=== PATIENT | female | born 1960 | race Hispanic/Latino ===

== ENCOUNTER 2022-10-13 09:58 | Emergency (ER) | payer SELFPAY ==
--- OUTSIDE RECORDS SUMMARY | 2022-10-13 10:04 | XMS REPORT | Continuity of Care Document ---
:1960 Author Organization Formerly [facility] t Address [address] [facility] [address] [place] [address] Care Team Providers Name Role Phone Unavailable Unavailable Unavailable Problems This patient has no known problems. Allergies, Adverse Reactions, Alerts This patient has no known allergies or adverse reactions. Medications This patient has no known medications. Procedures This patient has no known procedures. Encounters Start End Encounter Admission Attending Care Care Encounter Source Date/Time Date/Time Type Type Clinicians Facility Department ID 2022-10-01 2022-10-01 Outpatient [facility] [id number] Vj 10:14:18 10:14:18 0823 F Gerardo Results Test Description Test Time Test Comments Results Result Comments Source AMYLASE 2022-10-02 05:27:40 Test Item Value Reference Range Interpretation Comme nts AMYLASE (test code = 2205) 47 U/L 28-100 [id number] 05:27:40 Test Item Value Reference Range Interpretation Comments LIPASE (test code = 2058) 27 U/L 13-60 HEMOGLOBIN [id number] 04:25:03 Test Item Value Reference Range Interpretation Comments HEMOGLOBIN A1c (test 5.9 % 4.2-5.6 H [employer]IC AN DIABETES code = 43760) ASSOCIATION IDELINES FOR HGB A1C: PREDIABETES/INC REASED RISK . . . . . . . 5.7 -6.4% DIAGNOSIS OF DI ABETES . . . . . . . . . >=6 .5% WITH CONFIRMATION OR APPROPRIATE SYMPTOMS NOTE: ASSAY MAY BE AFFECTED BY HEMOGLOBINOPATH IES (SICKLE CELL ANEMIA, S- C DISEASE, OTHERS) OR HALEY FICIALLY LOWERED BY DECR EASED RED CELL SURVIVAL ( HEMOLYTIC ANEMIAS, BLOOD LOSS, ETC.). CONSIDER ALTERN ATE TESTING OR LABORATORY C ONSULTATION. UNLESS OTHERWIS E INDICATED, ALL TESTING PER FORMED AT CLINICAL PATHOL [employer], [place] [address] [facility], [place] [address] LABORATORY DIRE CTOR: JOEL MERCHANT M.D. CLIA NUMBER [id number] [facility] ACCREDITATION N O. [id number] CBC W/AUTO DIFF WITH [id number] 03:55:56 Test Item Value Reference Range Interpretation Comments WBC (test code = 7.5 K/UL 3.5-11.0 1001) RBC (test code = 5.00 M/UL 3.80-5.40 1002) HEMOGLOBIN (test code 12.4 G/DL 11.5-15.5 = 1003) HEMATOCRIT (test code 40.7 % 34.0-45.0 = 1004) MCV (test code = 81.4 fL 80.0-99.0 1005) MCH (test code = 24.8 PG 25.0-33.0 L 1006) MCHC (test code = 30.5 G/DL 31.0-36.0 L 1007) RDW (test code = 15.5 % 11.5-15.0 H 1038) NEUTROPHILS (test 63.2 % code = 1008) LYMPHOCYTES (test 28.9 % code = 1010) MONOCYTES (test code 5.0 % = 1011) EOSINOPHILS (test 1.9 % code = 1012) BASOPHILS (test code 0.7 % = 1013) IMMATURE GRANULOCYTES 0.3 % (test code = 1036) NUCLEATED RBCS (test 0.0 /100 WBC'S See_Comment [Aut omated code = 1065) message] The sy stem which generated this result transmitted reference range : 0.0. The refere nce range was not u sed to interpret th is result as normal/abnormal . PLATELET COUNT (test 261 K/UL 130-400 code = 1015) ABSOLUTE NEUTROPHILS 4.72 K/UL 1.50-7.50 (test code = 1066) ABSOLUTE LYMPHOCYTES 2.15 K/UL 1.00-4.00 (test code = 1067) ABSOLUTE MONOCYTES 0.37 K/UL 0.20-1.00 (test code = 1068) ABSOLUTE EOSINOPHILS 0.14 K/UL 0.00-0.50 (test code = 1040) ABSOLUTE BASOPHILS 0.05 K/UL 0.00-0.20 (test code = 1069) ABS IMMATURE 0.02 K/UL 0.00-0.10 GRANULOCYTES (test code = 1020) ABS NUCLEATED RBCS 0.00 K/UL 0.00-0.11 (test code = 46094) COMPREHENSIVE METABOLIC [id number] 03:34:56 Test Item Value Reference Range Interpretation Comments GLUCOSE (test code = 88 MG/DL 70-99 2216) BUN (test code = 10 MG/DL 6-20 2207) CREATININE (test 0.57 MG/DL 0.60-1.30 L code = 221) eGFR (2020 CKD-EPI) 105 >60 (test code = ) ML/MIN/1.73 CALC BUN/CREAT (test 18 RATIO 6-28 code = 223) SODIUM (test code = 142 MEQ/L 661-787 2898) POTASSIUM (test code 4.4 MEQ/L 3.5-5.4 = 2227) CHLORIDE (test code 104 MEQ/L 95-107 = 2214) CARBON DIOXIDE (test 27 MEQ/L 19-31 code = 2205) CALCIUM (test code = 9.7 MG/DL 8.5-10.5 2208) PROTEIN, TOTAL (test 7.6 G/DL 6.1-8.3 code = 2228) ALBUMIN (test code = 4.2 G/DL 3.5-5.2 2200) CALC GLOBULIN (test 3.4 G/DL 1.9-3.7 code = 224) CALC A/G RATIO (test 1.2 RATIO 1.0-2.6 code = 223) BILIRUBIN, TOTAL 0.3 MG/DL See_Comment [Automated message] (test code = 220) The syste m which generated this result transmit winter reference range : <=1.2. The refe rence range was not u sed to interpret th is result as normal/abnormal . ALKALINE PHOSPHATASE 107 U/L 40-136 (test code = 220) AST (test code = 15 U/L 9-40 2217) ALT (test code = 13 U/L 5-40 2218) LIPID [id number] 03:34:56 Test Item Value Reference Range Interpretation Comments CHOLESTEROL (test 268 MG/DL <200 H code = 2210) TRIGLYCERIDES (test 235 MG/DL <150 H code = 2232) HDL CHOLESTEROL (test 49 MG/DL >39 code = 2220) CALC LDL CHOL (test 179 MG/DL <100 H NOTE: C ALCULATED LDL code = 2237) IS BASED ON FRANK-HERMAN METHOD WHICHINCLUDES ADJUSTABLE TRIGLYCERIDE:VL DL CHOLESTEROL RAT IO.THIS FACTOR VARIES B Y MEASURED TRIGLY CERIDE AND NON-HDLCHOL ESTEROL CONCENTRATIONS WITH INCREASED CALCU LATED LDL SEENIN HIGH ER TRIGLYCERIDE OR LOWER NON-HDL SPECIME NS. FOR MOREINFORMATION , SEE CLIENT ANNOUNCE MENT AT [email or web address] [email or web address] RATIO LDL/HDL 3.65 RATIO <3.22 H (test code = 2238)
[2022-10-13] MEDS ORDERED: NA CHLORIDE 0.9% 1,000 ML ONE (10:39)
[2022-10-13] MEDS ORDERED: MECLIZINE HCL 12.5 MG TAB ONE (10:39)
--- NOTE | 2022-10-13 10:45 | RAD REPORT ---
EXAM DESCRIPTION: Damon Single View10/13/2022 10:29 am CLINICAL HISTORY: Chest pain COMPARISON: none FINDINGS: The lungs appear clear of acute infiltrate. The heart is normal size IMPRESSION: No acute abnormalities displayed
[2022-10-13 10:50] LABS: Absolute Lymphocytes (CBC) 1.8 K/uL (0.7-4.9); Hematocrit 38.5 % (36.0-45.0); Lymphocytes % 24.4 % (15.3-44.8); MCV 80.1 fL (80-100); Platelets 308 thou/uL (152-406)
[2022-10-13 11:06] LABS: ALT/SGPT 21 U/L (13-56); AST/SGOT 10 U/L (15-37); Albumin 3.8 g/dL (3.4-5.0); Alkaline Phosphatase 99 U/L (45-117); BUN Blood Urea Nitrogen 9 mg/dL (7-18); Bicarbonate 26 mEq/L (21-32); Bilirubin Total 0.3 mg/dL (0.2-1.0); Glomerular Filtration Rate 107 ml/min (=/>90); Glucose Level 103 mg/dL (74-106); Magnesium 2.3 mg/dL (1.6-2.4); Potassium 3.7 mEq/L (3.5-5.1); Protein, Total 8.5 g/dL (6.4-8.2); Sodium Level 139 mEq/L (136-145)
[2022-10-13 11:09] LABS: Specific Gravity 1.007 (1.005-1.030); Urine Bacteria None Seen /HPF (<20); Urine Bilirubin NEGATIVE (Negative); Urine Blood 3+ (OVER) (Negative); Urine Clarity Turbid (Clear); Urine Color Colorless (Yellow); Urine Glucose NEGATIVE (Negative); Urine Protein NEGATIVE (Negative); Urine RBC 21-50 /HPF (None Seen); Urine Urobilinogen Normal (Normal); Urine pH 6.5 (5.0-7.0)
--- NOTE | 2022-10-13 11:09 | RAD REPORT ---
EXAM DESCRIPTION: CT - Head Brain Wo Cont - 10/13/2022 11:01 am CLINICAL HISTORY: Vertigo COMPARISON: none TECHNIQUE: Computed axial tomography of the head was obtained. IV contrast was not requested. All CT scans are performed using dose optimization technique as appropriate and may include automated exposure control or mA/KV adjustment according to patient size. FINDINGS: An intracranial bleed is not seen The ventricles are normal in caliber No significant hypodense areas within the brain visualized No extra-axial fluid collection is noted. Fluid within the sinuses/ mastoids is not seen IMPRESSION: No acute intracranial abnormality is seen If patient's symptoms persist MRI of the brain would be recommended
[2022-10-13 11:15] LABS: Bilirubin Direct < 0.1 mg/dL (0-0.2); Bilirubin Indirect, Calculated ND mg/dL (0.2-0.8)
[2022-10-13 11:18] LABS: Protime INR 1.24
--- NOTE | 2022-10-13 11:19 | RAD REPORT ---
EXAM DESCRIPTION: Nestor Angio10/13/2022 11:01 am CLINICAL HISTORY: Vertigo COMPARISON: None TECHNIQUE: 75 cc Isovue [address] angiogram of the neck was obtained. 3D MIPS reconstruction performed. All CT scans are performed using dose optimization technique as appropriate and may include automated exposure control or mA/KV adjustment according to patient size. FINDINGS: Mild plaque is present within common carotid, internal carotid and external carotid arteri es bilaterally Mild mild plaque is present within the vertebral arteries bilaterally No dissection is seen. No high-grade stenosis IMPRESSION: Mild plaque within the carotid and vertebral arteries [place] crieria Mild stenosis 0 to 49 % Moderate stenosis 50-69% Severe stenosis 70-99%
--- NOTE | 2022-10-13 11:19 | RAD REPORT ---
EXAM DESCRIPTION: CTHead angio10/13/2022 11:01 am CLINICAL HISTORY: Vertigo COMPARISON: None TECHNIQUE: Seventy-five cc Isovue [address] angiogram of the head was obtained. 3D MIPS reconstruction performed. All CT scans are performed using dose optimization technique as appropriate and may include automated exposure control or mA/KV adjustment according to patient size. FINDINGS: The basilar, anterior cerebral, middle cerebral and posterior cerebral arteries do not dem onstrate a significant abnormality Mild calcified plaque distal internal carotid arteries An aneurysm is not seen A significant stenosis is not noted. No large vessel occlusion IMPRESSION: No significant abnormality is displayed
--- NOTE | 2022-10-13 11:28 | RAD REPORT ---
EXAM DESCRIPTION: CT - Chest For Pe Angio - 10/13/2022 11:02 am CLINICAL HISTORY: Chest pain COMPARISON: None. TECHNIQUE: Dynamically enhanced axial 3 mm thick images of the chest were obtained during administra tion of 75 mL Isovue 370 IV contrast. This is in addition to the 75 mL Isovue [address] angiogram head and neck. Coronal and oblique reconstruction images were generated and reviewed. Exam utilizes a protocol for o ptimal evaluation of pulmonary arterial tree. Maximum intensity projections 3D imaging was utilized All CT scans are performed using dose optimization technique as appropriate and may include automated exposure control or mA/KV adjustment according to patient size. FINDINGS: Low-density is present within a few peripheral right pulmonary arteries. Otherwise no pulmonary embolus noted. A thoracic aortic aneurysm is not noted. A pleural effusion is not seen. A pericardial effusion is not seen. A lung consolidation is not present. IMPRESSION: Low density is present within a few peripheral right pulmonary arteries. This probably r epresents artifact. Pulmonary embolus is possible but considered less likely. If the patient's sympto ms persist then follow-up imaging on another day could be obtained
--- NOTE | 2022-10-13 13:12 | ER ---
Nurse's Notes [facility] Name: Kallie Durham Age: 61 yrs Sex: Female : 1960 Arrival Date: 10/13/2022 Time: 09:58 Bed 13 Private MD: Diagnosis: Dizziness and giddiness;Chest pain, unspecified Presentation: 10/13 10:15 Chief complaint: Patient states: Dizziness since last night, worse with movement, CP jl7 started this morning, clinic sent to ER for CP. Coronavirus screen: At this time, the client does not indicate any symptoms associated with coronavirus-19. Ebola Screen: No symptoms or risks identified at this time. Initial Sepsis Screen: Does the patient meet any 2 criteria? No. Patient's initial sepsis screen is negative. Does the patient have a suspected source of infection? No. Patient's initial sepsis screen is negative. Risk Assessment: Do you want to hurt yourself or someone else? Patient reports no desire to harm self or others. Onset of symptoms was October 12, 2022. 10:15 Method Of Arrival: Ambulatory jl7 10:15 Acuity: ZARA 2 jl7 Triage Assessment: 10:16 General: Appears in no apparent distress. uncomfortable, Behavior is calm, cooperative. jl7 Pain: Complains of pain in chest. Historical: - Allergies: 10:16 No Known Allergies; jl7 - Home Meds: 10:16 None [Active]; jl7 - PMHx: 10:16 None; jl7 - PSHx: 10:16 None; jl7 - Immunization history:: Adult Immunizations unknown. - Social history:: Smoking status: Patient denies any tobacco usage or history of. - Family history:: not pertinent. - Hospitalizations: : No recent hospitalization is reported. Screenin:30 [facility] ED Fall Risk Assessment (Adult) Score/Fall Risk Level 0 - 2 = Low Risk. Abuse eh3 screen: Denies threats or abuse. Denies injuries from another. Nutritional screening: No deficits noted. Tuberculosis screening: No symptoms or risk factors identified. Assessment: 10:30 General: Appears in no apparent distress. uncomfortable, Behavior is calm, cooperative, eh3 appropriate for age. Pain: Denies pain. Neuro: Level of Consciousness is awake, alert, obeys commands, Oriented to person, place, time, situation. Neuro: Reports dizziness. Cardiovascular: Capillary refill < 3 seconds Patient's skin is warm and dry. Respiratory: Airway is patent Respiratory effort is even, unlabored, Respiratory pattern is regular, symmetrical. GI: Abdomen is round non-distended. Derm: Skin is pink, warm \T\ dry. Musculoskeletal: Circulation, motion, and sensation intact. 11:30 Reassessment: Patient appears in no apparent distress at this time. Patient and/or 3 family updated on plan of care and expected duration. Pain level reassessed. Patient is alert, oriented x 3, equal unlabored respirations, skin warm/dry/pink. 12:30 Reassessment: Patient appears in no apparent distress at this time. Patient and/or 3 family updated on plan of care and expected duration. Pain level reassessed. Patient is alert, oriented x 3, equal unlabored respirations, skin warm/dry/pink. Vital Signs: 10:15 BP 165 / 93; Pulse 84; Resp 17; Temp 97.9; Pulse Ox 96% ; Weight 95 kg; jl7 10:45 BP 142 / 85; Pulse 75; Resp 16; Pulse Ox 97% on R/A; eh3 12:00 BP 129 / 83; Pulse 66; Resp 16; Pulse Ox 98% on R/A; eh3 12:30 BP 112 / 73; Pulse 60; Resp 16; Pulse Ox 97% on R/A; eh3 ED Course: 09:59 Patient arrived in ED. rg4 10:00 Wilder Feliciano MD is Attending Physician. rn 10:16 Triage completed. jl7 10:16 Arm band placed on right wrist. jl7 10:20 America Menchaca, RN is Primary Nurse. eh3 10:30 Patient has correct armband on for positive identification. Placed in gown. Bed in low eh3 position. Call light in reach. Side rails up X2. Adult w/ patient. Provided Education on: Use of call johnson. Client placed on continuous cardiac and pulse oximetry monitoring. NIBP monitoring applied. 10:31 Chest Single View XRAY In Process Unspecified. EDMS 10:42 Inserted saline lock: 20 gauge in right antecubital area, using aseptic technique. eh3 Blood collected. 11:03 CT Head Brain wo Cont In Process Unspecified. EDMS 11:[address] In Process Unspecified. EDMS 11:[address] In Process Unspecified. EDMS 11:03 CT Chest For PE Angio In Process Unspecified. EDMS 13:23 No provider procedures requiring assistance completed. IV discontinued, intact, eh3 bleeding controlled, No redness/swelling at site. Pressure dressing applied. Administered Medications: 10:42 Drug: NS 0.9% IV 1000 ml Route: IV; Rate: 1000 ml; Site: right antecubital; eh3 13:00 Follow up: IV Status: Completed infusion; IV Intake: 1000ml eh3 10:42 Drug: Meclizine PO 50 mg Route: PO; eh3 11:30 Follow up: Response: No adverse reaction eh3 Medication: 13:22 VIS not applicable for this client. eh3 Intake: 13:00 IV: 1000ml; Total: 1000ml. eh3 Outcome: 13:11 Discharge ordered by . rn 13:23 Discharged to home ambulatory. eh3 13:23 Condition: stable 13:23 Discharge instructions given to patient, Instructed on discharge instructions, follow up and referral plans. medication usage, Demonstrated understanding of instructions, follow-up care, medications, Prescriptions given X 1. 13:23 Patient left the ED. eh3 Signatures: Dispatcher [employer] EDMS Wilder Feliciano MD MD rn Garcia, Rubi rg4 Jose Rafael Naqvi RN RN jl7 America Menchaca RN RN eh3 Corrections: (The following items were deleted from the chart) 13:12 12:30 BP 112 / 73; Pulse 30bpm; Resp 16bpm; Pulse Ox 97% RA; eh3 eh3
--- NOTE | 2022-10-13 13:12 | EDPHYS ---
Physician Documentation [facility] Name: Kallie Durham Age: 61 yrs Sex: Female : 1960 Arrival Date: 10/13/2022 Time: 09:58 Bed 13 Private MD: ED Physician Wilder Feliciano HPI: 10/13 10:23 This 61 yrs old Female presents to ER via Ambulatory with complaints of rn Dizziness, chest pain. 10:23 The patient presents with dizziness, lightheadedness, feeling off balance. Onset: The rn symptoms/episode began/occurred last night. Modifying factors: The symptoms are alleviated by holding head still, lying down, the symptoms are aggravated by movement of head, standing up, changing position. Associated signs and symptoms: Pertinent positives: chest pain, Pertinent negatives: abdominal pain, confusion, seizure, syncope. Severity of symptoms: At their worst the symptoms were moderate in the emergency department the symptoms are unchanged. The patient has not experienced similar symptoms in the past. Patient reports started having intermittent dizzy episodes last night, feels off balance and is going to fall when walking. Better when not moving head or changing positions. This morning started to have episodes of chest pressure as well. Went to clinic and told to come here for further evaluation. Denies taking any medication. No head injury. No syncope or seizure. Reports nausea but no vomiting. No current or recent illness. Reports blood on toilet paper when wiping. Denies any blood in the urine.. Historical: - Allergies: 10:16 No Known Allergies; jl7 - Home Meds: 10:16 None [Active]; jl7 - PMHx: 10:16 None; jl7 - PSHx: 10:16 None; jl7 - Immunization history:: Adult Immunizations unknown. - Social history:: Smoking status: Patient denies any tobacco usage or history of. - Family history:: not pertinent. - Hospitalizations: : No recent hospitalization is reported. ROS: 10:23 Constitutional: Negative for fever, chills, and weight loss, Eyes: Negative for injury, rn pain, redness, and discharge, Neck: Negative for injury, pain, and swelling, Cardiovascular: Negative for palpitations, and edema, Respiratory: Negative for shortness of breath, cough, wheezing, and pleuritic chest pain, Abdomen/GI: Negative for abdominal pain, vomiting, diarrhea, and constipation, Back: Negative for injury and pain, MS/Extremity: Negative for injury and deformity, Skin: Negative for injury, rash, and discoloration, Neuro: Negative for weakness, numbness, tingling, and seizure. Exam: 10:23 Constitutional: This is a well developed, well nourished patient who is awake, alert, rn and in no acute distress. Ambulatory to room without distress or requiring assistance Head/Face: Normocephalic, atraumatic. Eyes: Pupils equal round and reactive to light, extra-ocular motions intact. Neck: Trachea midline, no masses palpated, and no cervical lymphadenopathy. Supple, full range of motion without nuchal rigidity, or vertebral point tenderness. No Meningismus. Cardiovascular: Regular rate and rhythm. No pulse deficits. Respiratory: No increased work of breathing, no retractions or nasal flaring. Abdomen/GI: Soft, non-tender Skin: Warm, dry with normal turgor. Normal color with no rashes, no lesions, and no evidence of cellulitis. MS/ Extremity: Pulses equal, no cyanosis. Neurovascular intact. Full, normal range of motion. Equal circumference. Neuro: Awake and alert, GCS 15, oriented to person, place, time, and situation. Cranial nerves II-XII grossly intact. Motor strength 5/5 in all extremities. Sensory grossly intact. Cerebellar exam normal. Normal gait. 12:05 ECG was reviewed by the Attending Physician. rn Vital Signs: 10:15 BP 165 / 93; Pulse 84; Resp 17; Temp 97.9; Pulse Ox 96% ; Weight 95 kg; jl7 10:45 BP 142 / 85; Pulse 75; Resp 16; Pulse Ox 97% on R/A; eh3 12:00 BP 129 / 83; Pulse 66; Resp 16; Pulse Ox 98% on R/A; eh3 12:30 BP 112 / 73; Pulse 60; Resp 16; Pulse Ox 97% on R/A; eh3 MDM: 10:00 Patient medically screened. rn 12:05 ED course: Spoke with patient and family regarding possible admission given no rn definitive source of chest pain and dizziness. CT PE negative for PE but not an ideal study per Dr. Burnett, but thinks PE is less likely source. CT head and head and neck angio without evidence of dissection or large vessel occlusion. Troponin negative. Normal ECG. Family and patient request to not be admitted, understands the risks and benefits of admission versus discharge. I convinced him to at least stay for repeat troponin and further observation In the ER. 13:10 Differential diagnosis: cardiac arrhythmia, generalized weakness, hyperventilation, rn hypovolemia, idiopathic dizziness, TIA, vertigo. Data reviewed: vital signs, nurses notes, lab test result(s), EKG, radiologic studies, CT scan, plain films, and as a result, I will admit patient. Consideration of Admission/Observation Escalation of care including admission/observation considered. Counseling: I had a detailed discussion with the patient and/or guardian regarding the historical points, exam findings, and any diagnostic results supporting the discharge/admit diagnosis, lab results. ED course: Repeat troponin negative, actually decreased. Patient and family still want to go home. Will DC home with return precautions. As mentioned before CT PE unclear by radiology favors artifact instead of real PE. No oxygen requirement.. 10/13 10:18 Order name: Basic Metabolic Panel; Complete Time: rn 10/13 10:18 Order name: CBC with Diff; Complete Time: rn 10/13 10:18 Order name: Hepatic Function; Complete Time: rn 10/13 10:18 Order name: Magnesium; Complete Time: rn 10/13 10:18 Order name: Protime (+inr); Complete Time: rn 10/13 10:18 Order name: Ptt, Activated; Complete Time: rn 10/13 10:18 Order name: Troponin High Sensitivity; Complete Time: rn 10/13 10:18 Order name: Urinalysis w/ reflexes; Complete Time: rn 10/13 11:17 Order name: CREATININE WHOLE BLOOD; Complete Time: 11: EDMS 10/13 12:05 Order name: Troponin High Sensitivity; Complete Time: 13: rn 10/13 10:18 Order name: CT Head Brain wo Cont; Complete Time: rn 10/13 10:18 Order name: Chest Single View XRAY; Complete Time: 11: rn 10/13 10:18 Order name: Head Angio CT; Complete Time: rn 10/13 10:18 Order name: Neck Angio CT; Complete Time: rn 10/13 10:21 Order name: CT Chest For PE Angio; Complete Time: 11:28 rn 10/13 10:18 Order name: EKG; Complete Time: 10:19 rn 10/13 10:18 Order name: Cardiac monitoring; Complete Time: 10:20 rn 10/13 10:18 Order name: EKG - Nurse/Tech; Complete Time: 11:39 rn 10/13 10:18 Order name: IV Saline Lock; Complete Time: 10:42 rn 10/13 10:18 Order name: Labs collected and sent; Complete Time: 10:42 rn 10/13 10:18 Order name: NPO; Complete Time: 10:20 rn 10/13 10:18 Order name: O2 Per Protocol; Complete Time: 10:20 rn 10/13 10:18 Order name: O2 Sat Monitoring; Complete Time: 10:20 rn EC:05 Rate is 67 beats/min. Rhythm is regular. QRS [place] is Normal. [place] interval is normal. QRS rn interval is normal. QT interval is normal. No Q waves. T waves are Normal. No ST changes noted. Clinical impression: Normal ECG. Interpreted by me. Reviewed by me. Administered Medications: 10:42 Drug: NS 0.9% IV 1000 ml Route: IV; Rate: 1000 ml; Site: right antecubital; 3 13:00 Follow up: IV Status: Completed infusion; IV Intake: 1000ml [facility] 10:42 Drug: Meclizine PO 50 mg Route: PO; 3 11:30 Follow up: Response: No adverse reaction [facility] Disposition Summary: 10/13/22 13:11 Discharge Ordered Location: Home rn Problem: new rn Symptoms: have improved rn Condition: Stable rn Diagnosis - Dizziness and giddiness rn - Chest pain, unspecified rn Followup: rn - With: Private Physician - When: As needed - Reason: Recheck today's complaints, Re-evaluation by your physician Discharge Instructions: - Discharge Summary Sheet rn - Nonspecific Chest Pain, Adult rn - Dizziness rn Forms: - Medication Reconciliation Form rn - Thank You Letter rn - Antibiotic furnace tapper - Prescription Opioid Use rn - Patient Portal Instructions rn - Leadership Thank You Letter rn Prescriptions: - Meclizine 25 mg Oral Tablet - take 1 tablet by ORAL route every 8 hours As needed; 30 tablet; Refills: 0, rn Product Selection Permitted Signatures: Dispatcher [employer] EDMS Wilder Feliciano MD MD rn Leal, Jahala, RN RN jl7 America Menchaca, RN RN eh3 Corrections: (The following items were deleted from the chart) 11:57 10:23 Patient reports started having intermittent dizzy episodes last night, feels off rn balance and is going to fall when walking. Better when not moving head or changing positions. This morning started to have episodes of chest pressure as well. Went to clinic and told to come here for further evaluation. Denies taking any medication. No head injury. No syncope or seizure. Reports nausea but no vomiting. No current or recent illness.. rn 13:11 13:10 ED course: Repeat troponin negative, actually decreased. Patient and family still rn want to go home. Will DC home with return precautions.. rn
[2022-10-13 13:30] VITALS: TEMP 97.9
[2022-10-13 13:35] VITALS: BP 112/73; O2SAT 97
--- NOTE | 2022-10-14 16:47 | EKG ---
Test Date: 2022-10-13 Test Time: 11:34:45 Dynamo Repairer: PERCY MEASUREMENT RESULTS: Intervals: Rate: 67 IL: 156 QRSD: 70 QT: 414 QTc: 437 [place]: P: 56 IL: 156 QRS: 26 T: 43 INTERPRETIVE STATEMENTS: Normal sinus rhythm Normal ECG Compared to ECG 07/26/2012 01:21:14 No significant changes Electronically Signed On 10-14-22 16:43:40 CDT by Phi Richards
== END 2022-10-13 13:23 | disposition home or self-care (01) ==
LOC: ER 09:58
DX: R42 Dizziness and giddiness (principal); R07.89 Other chest pain
CPT/HCPCS: 36415; 70450; 70496; 70498; 71045; 71275; 80048; 80076; 81001; 82565; 83735; 84484; 85025; 85610; 85730; 93005; 96360; 96361; 99284; J7030; J8597; Q9967

== ENCOUNTER → 2023-04-02 | Emergency (ER) | payer SELFPAY ==
[~2023-04-02] MED LIST: LORazepam 2 MG/ML VIAL ONE; MECLIZINE HCL 12.5 MG TAB ONE
--- OUTSIDE RECORDS SUMMARY | 2023-04-02 10:53 | XMS REPORT | Continuity of Care Document ---
Author Name Unknown Address [address] [facility]. [address] [place] [address] [facility] thconnect Address [address] [facility] [address] [place] [address] Care Team Providers Care Cloth Printer Helper Name Role Phone Unavailable Unavailable Unavailable Encounters Start Date/Time End Date/Time Encounter Type Admission Type Attending Clinicians Care Facility Care Department Encounter ID Source 2022-10-01 10:14:18 2022-10-01 10:14:18 Outpatient [facility] [id number] Vj Carrillo Results Test Description Test Time Test Comments Results Result Co mments Source [id number] 05:27:40* Test Item Value Reference Range Interpretation Comme [facility] LIPASE (test code = 2058) 27 U/L 13-60 HEMOGLOBIN [id number] 04:25:03* Test Item Value Reference Range Interpretation Comme [facility] HEMOGLOBIN A1c (test code = 38502) 5.9 % 4.2-5.6 H [employer] GUIDELINES FOR HGB A1C: PREDIABETES/INCREASED RISK . . . . . . . 5.7-6.4% DIAGNOSIS OF DIABETES . . . . . . . . . >=6.5% WITH CONFIRMATION OR APPROPRIATE SYMPTOMS NOTE: ASSAY MAY BE AFFECTED BY HEMOGLOBINOPATHIES (SICKLE CELL ANEMIA, S-C DISEASE, OTHERS) OR ARTIFICIALLY LOWERED BY DECREASED RED CELL SURVIVAL (HEMOLYTIC ANEMIAS, BLOOD LOSS, ETC.). CONSIDER ALTERNATE TESTING OR LABORATORY CONSULTATION. UNLESS OTHERWISE INDICATED, ALL TESTING PERFORMED AT [facility] [address] [place] [id number] PREVENTATIVE MAINTENANCE TECHNICIAN: JOEL MELVIN M.D. CLIA NUMBER [id number] [place]. [id number] CBC W/AUTO DIFF WITH [id number] 03:55:56* Test Item Value Reference Range Interpretation Comme nts WBC (test code = 1001) 7.5 K/UL 3.5-11.0 RBC (test code = 1002) 5.00 M/UL 3.80-5.40 HEMOGLOBIN (test code = 1003) 12.4 G/DL 11.5-15.5 HEMATOCRIT (test code = 1004) 40.7 % 34.0-45.0 MCV (test code = 1005) 81.4 fL 80.0-99.0 MCH (test code = 1006) 24.8 PG 25.0-33.0 L MCHC (test code = 1007) 30.5 G/DL 31.0-36.0 L RDW (test code = 1038) 15.5 % 11.5-15.0 H NEUTROPHILS (test code = 1008) 63.2 % LYMPHOCYTES (test code = 1010) 28.9 % MONOCYTES (test code = 1011) 5.0 % EOSINOPHILS (test code = 1012) 1.9 % BASOPHILS (test code = 1013) 0.7 % IMMATURE GRANULOCYTES (test code = 1036) 0.3 % NUCLEATED RBCS (test code = 1065) 0.0 /100 WBC'S See_Comment [Automated messa ge] The system which generated this result transmitted reference range: 0.0. The reference range was not used to interpret this result as normal/abnormal. PLATELET COUNT (test code = 1015) 261 K/UL 130-400 ABSOLUTE NEUTROPHILS (test code = 1066) 4.72 K/UL 1.50-7.50 ABSOLUTE LYMPHOCYTES (test code = 1067) 2.15 K/UL 1.00-4.00 ABSOLUTE MONOCYTES (test code = 1068) 0.37 K/UL 0.20-1.00 ABSOLUTE EOSINOPHILS (test code = 1040) 0.14 K/UL 0.00-0.50 ABSOLUTE BASOPHILS (test code = 1069) 0.05 K/UL 0.00-0.20 ABS IMMATURE GRANULOCYTES (test code = 1020) 0.02 K/UL 0.00-0.10 ABS NUCLEATED RBCS (test code = 07568) 0.00 K/UL 0.00-0.11 COMPREHENSIVE METABOLIC [id number] 03:34:56* Test Item Value Reference Range Interpretation Comme nts GLUCOSE (test code = 2217) 88 MG/DL 70-99 BUN (test code = 2207) 10 MG/DL 6-20 CREATININE (test code = 2213) 0.57 MG/DL 0.60-1.30 L eGFR (2020 CKD-EPI) (test code = ) 105 ML/MIN/1.73 >60 CALC BUN/CREAT (test code = 2234) 18 RATIO 6-28 SODIUM (test code = 2230) 142 MEQ/L 133-146 POTASSIUM (test code = 2227) 4.4 MEQ/L 3.5-5.4 CHLORIDE (test code = 2214) 104 MEQ/L 95-107 CARBON DIOXIDE (test code = 2205) 27 MEQ/L 19-31 CALCIUM (test code = 2208) 9.7 MG/DL 8.5-10.5 PROTEIN, TOTAL (test code = 2228) 7.6 G/DL 6.1-8.3 ALBUMIN (test code = 2200) 4.2 G/DL 3.5-5.2 CALC GLOBULIN (test code = 2239) 3.4 G/DL 1.9-3.7 CALC A/G RATIO (test code = 2233) 1.2 RATIO 1.0-2.6 BILIRUBIN, TOTAL (test code = 2206) 0.3 MG/DL See_Comment [Automated me ssage] The system which generated this result transmitted reference range: <=1.2. The reference range was not used to interpret this result as normal/abnormal. ALKALINE PHOSPHATASE (test code = 2203) 107 U/L 40-136 AST (test code = 2217) 15 U/L 9-40 ALT (test code = 2218) 13 U/L 5-40 LIPID [id number] 03:34:56* Test Item Value Reference Range Interpretation Comme nts CHOLESTEROL (test code = 2209) 268 MG/DL <200 H TRIGLYCERIDES (test code = 2231) 235 MG/DL <150 H HDL CHOLESTEROL (test code = 2219) 49 MG/DL >39 CALC LDL CHOL (test code = 2236) 179 MG/DL <100 H NOTE: CALCULATED LDL IS BASED ON FRANK-HERMAN METHOD WHICHINCLUDES ADJUSTABLE TRIGLYCERIDE:VLDL CHOLESTEROL RATIO.THIS FACTOR VARIES BY MEASURED TRIGLYCERIDE AND NON-HDLCHOLESTEROL CONCENTRATIONS WITH INCREASED CALCULATED LDL SEENIN HIGHER TRIGLYCERIDE OR LOWER NON-HDL SPECIMENS. FOR MOREINFORMATION, SEE CLIENT ANNOUNCEMENT AT [email or web address] RATIO LDL/HDL (test code = 2238) 3.65 RATIO <3.22 H
--- NOTE | 2023-04-02 12:10 | RAD REPORT ---
EXAM DESCRIPTION: CT - Head Brain Wo Cont - 04/02/2023 12:02 pm CLINICAL HISTORY: DIZZINESS Headache, drowsiness, dizziness. COMPARISON: Thorax Wo Con dated 03/10/2023Head Brain Wo Cont dated 10/13/2022; Head angio dated 3 TECHNIQUE: All CT scans are performed using dose optimization technique as appropriate and may inclu de automated exposure control or mA/KV adjustment according to patient size. FINDINGS: No intracranial hemorrhage, hydrocephalus or extra-axial fluid collection.No areas of brai n edema or evidence of midline shift. Mild right maxillary sinus fluid. The calvarium is intact. IMPRESSION: No acute intracranial abnormality.
--- NOTE | 2023-04-02 12:13 | RAD REPORT ---
EXAM DESCRIPTION: CT - Head angio - 04/02/2023 12:02 pm CLINICAL HISTORY: DIZZINESS Headache, drowsiness, CVA symptomology COMPARISON: <Comparisons> TECHNIQUE: CT angiography of the head was performed with MIPs. All CT scans are performed using dose optimization technique as appropriate and may include automated exposure control or mA/KV adjustment according to patient size. FINDINGS: No evidence of large vessel occlusion. No evidence of aneurysm is detected. No flow-limiti ng stenosis or vascular malformation identified. Antegrade flow is seen in the vertebral arteries. The vertebral arteries are codominant. The visualized dural venous sinuses are patent. IMPRESSION: No significant flow abnormality is detected.
--- NOTE | 2023-04-02 12:15 | RAD REPORT ---
EXAM DESCRIPTION: CT - Neck Angio - 04/02/2023 12:02 pm CLINICAL HISTORY: dizziness Headache, drowsiness, CVA symptomology COMPARISON: <Comparisons> TECHNIQUE: CT angiography of the neck vessels was performed with MIPs. All CT scans are performed using dose optimization technique as appropriate and may include automated exposure control or mA/KV adjustment according to patient size. FINDINGS: A left aortic arch is identified with normal three vessel configuration of the great vesse ls. No significant flow abnormality is seen of the common carotid bilaterally. Mild hard plaque is seen in both carotid bulbs. No significant stenosis is identified involving the c ervical segments of both internal carotid arteries. Normal flow is seen within both vertebral arteries. IMPRESSION: No significant flow abnormality of the neck vessels is identified. Mild hard plaque is seen in both carotid bulbs. NASCET criteria used. Mild 0-49% stenosis Moderate 50-69% stenosis Severe 70-99% stenosis
[2023-04-02 12:18] LABS: Absolute Lymphocytes (CBC) 1.9 K/uL (0.7-4.9); Hematocrit 43.2 % (36.0-45.0); Lymphocytes % 25.9 % (15.3-44.8); MCV 82.4 fL (80-100); MPV 8.3 fL (7.6-11.3); Platelets 299 thou/uL (152-406); RBC Red Blood Cell Count 5.24 M/uL (3.86-4.86)
--- NOTE | 2023-04-02 12:29 | RAD REPORT ---
EXAM DESCRIPTION: RAD - Chest Single View - 04/02/2023 12:19 pm CLINICAL HISTORY: COUGH Chest pain. COMPARISON: Chest Single View dated 10/13/2022 FINDINGS: Portable technique limits examination quality. The lungs are grossly clear. The heart is normal in size. No displaced fractures. IMPRESSION: No acute intrathoracic process suspected.
[2023-04-02 12:35] LABS: BUN Blood Urea Nitrogen 9 mg/dL (7-18); Bicarbonate 27 mEq/L (21-32); Glomerular Filtration Rate 109 ml/min (=/>90); Glucose Level 100 mg/dL (74-106); Potassium 3.6 mEq/L (3.5-5.1); Sodium Level 141 mEq/L (136-145)
[2023-04-02 12:36] LABS: Troponin High Sensitivity < 3.0 pg/mL (<58.9)
[2023-04-02 13:50] LABS: Urine Bacteria None Seen /HPF (<20); Urine Bilirubin NEGATIVE (Negative); Urine Blood Negative (Negative); Urine Clarity Clear (Clear); Urine Color Colorless (Yellow); Urine Glucose NEGATIVE (Negative); Urine Mucus Slight /HPF (None Seen); Urine Protein NEGATIVE (Negative); Urine RBC <5 /HPF (None Seen); Urine Urobilinogen Normal (Normal); Urine pH 6.5 (5.0-7.0)
[2023-04-02 13:56] LABS: Specific Gravity > 1.030 (1.005-1.030)
--- NOTE | 2023-04-02 15:22 | RAD REPORT ---
EXAM DESCRIPTION: MRI - Brain Wo Cont - 04/02/2023 2:28 pm CLINICAL HISTORY: dizziness, L arm dysmetria COMPARISON: Head CT 03/24/2022 at 9:12 a.m.. TECHNIQUE: Multiplanar multisequence MRI of the brain performed without IV contrast. FINDINGS: Motion artifact somewhat limits evaluation, despite attempts at repeat imaging. No evidence of acute infarct or other diffusion signal abnormality. No evidence of acute intracranial hemorrhage or abnormal extra-axial fluid collections. Ventricular caliber within normal for age. Midline structures are unremarkable. Subtle subcortical and deep white matter T2/FLAIR hyperintensities, nonspecific, but suggestive of mi ld chronic small vessel ischemic changes. No mass effect or midline shift. Major vascular flow voids are preserved. Mastoid air cells are partially opacified on the left. Right maxillary sinus air-fluid level. IMPRESSION: No acute intracranial process. No evidence of ventriculomegaly or mass effect.
--- NOTE | 2023-04-02 16:03 | EDPHYS ---
Physician Documentation [facility] Name: Kallie Durham Age: 62 yrs Sex: Female : 1960 Arrival Date: 04/02/2023 Time: 10:50 Bed 30 Private MD: ED Physician Casey Lomas HPI: 04/02 11:27 This 62 yrs old Female presents to ER via Ambulatory with complaints of ec2 Weakness, Dizziness. 11:27 Patient arrives today for evaluation of dizziness. Patient has been experiencing ec2 dizziness for the past 4 days. Patient states that she feels dizzy as she is unstable on her feet, states that she has issues with ambulation. Patient reports no falls or injuries. No history of medical problems. Denies any chest pain or difficulty breathing, denies abdominal pain, denies recent illnesses.. Historical: - Allergies: 11:24 No Known Allergies; iw - Home Meds: 11:25 None [Active]; iw - PMHx: 11:25 None; iw - Immunization history:: Adult Immunizations not up to date. - Social history:: Smoking status: Patient denies any tobacco usage or history of. ROS: 11:28 Constitutional: as per hpi ec2 Exam: 11:28 Constitutional: GEN: NAD Head: atraumatic Eyes: EOMI Ears: External ears are ec2 normal. CV: regular rate LUNGS: no respiratory distress ABD: non-distended SKIN: no evidence of rashes MSK: no evidence of trauma NEURO: moves all extremities equally, cranial nerves II through XII intact, strength intact all 4 extremities, no pronator drift, left-sided upper extremity dysmetria Vital Signs: 11:24 BP 108 / 69; Pulse 83; Resp 16; Temp 98.4; Pulse Ox 96% on R/A; Weight 90.72 kg; iw 16:10 BP 132 / 88; Pulse 89; Resp 18 S; Pulse Ox 99% on R/A; as6 MDM: 11:24 Patient medically screened. ec2 11:28 Data reviewed: vital signs. ED course: Patient arrives today for evaluation of ec2 dizziness. Examination remarkable for neuro findings as noted above. Will obtain lab work, CT imaging and further assess. Currently evaluating for possible occlusion, stroke, electrolyte disturbances, UTI.. 16:00 ED course: MRI shows no acute intracranial process. Will treat the patient for ec2 peripheral vertigo and have her follow-up with the primary care doctor. Return precautions given. 04/02 11:26 Order name: Basic Metabolic Panel; Complete Time: 12:43 ec2 04/02 11:26 Order name: CBC with Diff; Complete Time: 12:43 ec2 04/02 11:26 Order name: Troponin HS; Complete Time: 12:43 ec2 04/02 11:26 Order name: UAM; Complete Time: 14:25 ec2 04/02 12:48 Order name: CREATININE WHOLE BLOOD; Complete Time: 13:00 EDMS 04/02 11:26 Order name: XRAY Chest (1 view); Complete Time: 12:43 ec2 04/02 11:26 Order name: CT Head Angio; Complete Time: 12:43 ec2 04/02 11:26 Order name: CT Neck Angio; Complete Time: 12:43 ec2 04/02 11:26 Order name: CT Head Brain wo Cont; Complete Time: 12:43 ec2 04/02 12:48 Order name: MRI - Brain Wo Cont; Complete Time: 15:59 ec2 04/02 11:26 Order name: Cardiac monitoring; Complete Time: 15:13 ec2 04/02 11:26 Order name: IV Saline Lock; Complete Time: 13:44 ec2 04/02 11:26 Order name: Labs collected and sent; Complete Time: 13:44 ec2 04/02 11:26 Order name: O2 Per Protocol; Complete Time: 15:13 ec2 04/02 11:26 Order name: O2 Sat Monitoring; Complete Time: 15:12 ec2 Administered Medications: 12:52 Drug: Meclizine PO 50 mg PO once Route: PO; as6 16:12 Follow up: Response: No adverse reaction as6 14:00 Drug: Ativan IVP 2 mg IVP once Route: IVP; Site: right antecubital; as6 16:12 Follow up: Response: No adverse reaction as6 Disposition Summary: 04/02/23 16:03 Discharge Ordered Notes: Location: Home ec2 Condition: Stable ec2 Diagnosis - Other peripheral vertigo ec2 Followup: ec2 - With: Private Physician - When: - Reason: Re-evaluation by your physician Discharge Instructions: - Discharge Summary Sheet ec2 - Vertigo, Sdhe-[id number] ec2 Forms: - Medication Reconciliation Form ec2 - Thank You Letter ec2 - Antibiotic Education ec2 - Prescription Opioid Use ec2 - Patient Portal Instructions ec2 - Leadership Thank You Letter ec2 Prescriptions: - Meclizine 25 mg Oral Tablet - take 1 tablet ORAL route every 8 hours As needed; 30 tablet; Refills: 0, ec2 Product Selection Permitted Signatures: Dispatcher [employer] Sona Mayen RN RN iw Slawson, Ashby, RN RN as6 Casey Lomas MD MD ec2
--- NOTE | 2023-04-02 16:03 | ER ---
Nurse's Notes [facility] Name: Kallie Durham Age: 62 yrs Sex: Female : 1960 Arrival Date: 04/02/2023 Time: 10:50 Bed 30 Private MD: Diagnosis: Other peripheral vertigo Presentation: 04/02 11:21 Chief complaint: Patient states: dizziness and weakness since Thursday. Coronavirus iw screen: At this time, the client does not indicate any symptoms associated with coronavirus-19. Ebola Screen: Patient negative for fever greater than or equal to 101.5 degrees Fahrenheit, and additional compatible Ebola Virus Disease symptoms Patient denies exposure to infectious person. Patient denies travel to an Ebola-affected area in the 21 days before illness onset. No symptoms or risks identified at this time. Initial Sepsis Screen: Does the patient meet any 2 criteria? No. Patient's initial sepsis screen is negative. Does the patient have a suspected source of infection? No. Patient's initial sepsis screen is negative. Risk Assessment: Do you want to hurt yourself or someone else? Patient reports no desire to harm self or others. 11:21 Method Of Arrival: Ambulatory iw 11:21 Acuity: ZARA 3 iw 16:11 Onset of symptoms was March 30, 2023. as6 Historical: - Allergies: 11:24 No Known Allergies; iw - Home Meds: 11:25 None [Active]; iw - PMHx: 11:25 None; iw - Immunization history:: Adult Immunizations not up to date. - Social history:: Smoking status: Patient denies any tobacco usage or history of. Screenin:10 [facility] ED Fall Risk Assessment (Adult) Score/Fall Risk Level 0 - 2 = Low Risk. Abuse as6 screen: Denies threats or abuse. Denies injuries from another. Nutritional screening: No deficits noted. Tuberculosis screening: No symptoms or risk factors identified. Assessment: 13:00 General: Appears in no apparent distress. Behavior is calm, cooperative, Reports as6 fatigue for. Pain: Denies pain. Neuro: Reports weakness. 13:29 General: pt taken to MRI. as6 Vital Signs: 11:24 BP 108 / 69; Pulse 83; Resp 16; Temp 98.4; Pulse Ox 96% on R/A; Weight 90.72 kg; iw 16:10 BP 132 / 88; Pulse 89; Resp 18 S; Pulse Ox 99% on R/A; as6 ED Course: 10:52 Patient arrived in ED. mg5 10:55 Casey Lomas MD is Attending Physician. ec2 11:22 Triage completed. iw 12:03 CT Head Angio In Process Unspecified. EDMS 12:03 CT Neck Angio In Process Unspecified. EDMS 12:04 CT Head Brain wo Cont In Process Unspecified. EDMS 12:08 CT completed. Patient tolerated procedure well. Note: 20 g to rt ac by zahraa in ct, sj labs drawn and sent . Patient moved to radiology via wheelchair. 12:21 XRAY Chest (1 view) In Process Unspecified. EDMS 13:29 Arm band placed on. as6 14:20 MRI - Brain Wo Cont In Process Unspecified. EDMS 15:12 Elpidio Mazariegos, RN is Primary Nurse. bp 16:10 Bed in low position. Call light in reach. Provided Education on: follow up. as6 16:10 No provider procedures requiring assistance completed. IV discontinued, intact, as6 bleeding controlled, No redness/swelling at site. Pressure dressing applied. Administered Medications: 12:52 Drug: Meclizine PO 50 mg PO once Route: PO; as6 16:12 Follow up: Response: No adverse reaction as6 14:00 Drug: Ativan IVP 2 mg IVP once Route: IVP; Site: right antecubital; as6 16:12 Follow up: Response: No adverse reaction as6 Medication: 16:10 VIS not applicable for this client. as6 Outcome: 16:03 Discharge ordered by . ec2 16:11 Discharged to home ambulatory, with family, as6 16:11 Condition: stable 16:11 Discharge instructions given to patient, family, Instructed on discharge instructions, follow up and referral plans. medication usage, Demonstrated understanding of instructions, follow-up care, medications, Prescriptions given X 1, 16:12 Patient left the ED. as6 Signatures: Dispatcher [employer] Zahraa Haney Irene, RN RN iw Elpidio Mazariegos, Partha Godinez RN, RN RN as6 Darline Klein mg5 Casey Lomas MD MD ec2 Corrections: (The following items were deleted from the chart) 11:25 11:24 Pulse 83bpm; Resp 16bpm; Pulse Ox 96% RA; Temp 98.4F; 90.72 kg; iw iw
[2023-04-02 16:19] VITALS: BP 132/88; TEMP 98.4; O2SAT 99
== END ==
LOC: ER 10:50
DX: H81.399 Other peripheral vertigo, unspecified ear (principal)
CPT/HCPCS: 36415; 70450; 70496; 70498; 70551; 71045; 80048; 81001; 82565; 84484; 85025; J8597; Q9967

== ENCOUNTER 2024-01-18 10:46 | Emergency (ER) | payer SELFPAY ==
--- OUTSIDE RECORDS SUMMARY | 2024-01-18 10:50 | XMS REPORT | Continuity of Care Document ---
Author Name Unknown Address [address] [facility] [address] [place] [address] [facility] thconnect Address [address] [facility] 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 Ordering Clinician Indication Dosage Frequency Signature (SIG) Comments Components Source naproxen 500 mg tablet 06-03 00:00: 00 Yes 1mg Vj Carrillo cyclobenzap rine 10 mg tablet 06-03 00:00: 00 Yes 1mg Vj Carrillo ranitidine 150 mg tablet 04-14 00:00: 00 Yes 1mg Vj Carrillo Bactroban 2 % topical ointment 05-31 00:00: 00 Yes 1% Vj Carrillo triamcinolo ne acetonide 0.5 % topical cream 04-20 00:00: 00 Yes 1% Vj Carrillo hydralazine 25 mg tablet 04-20 00:00: 00 Yes 1mg Vj Carrillo Vital Signs Vital Name Observation Time Observation Value Comments S ource Respiratory Rate 2023-06-04 10:01:00 19.00 /min Vj Carrillo BP Systolic 2023-06-04 10:01:00 111 mm[Hg] Michael Carrillo BP Diastolic 2023-06-04 10:01:00 73 mm[Hg] Robin Carrillo Weight Measured 2023-06-04 10:01:00 210.00 pounds Vj Carrillo Height Measured 2023-06-04 10:01:00 60.75 inches Vj F Gerardo Body Temperature 2023-06-04 10:01:00 98.10 degrees Vj F Gerardo Heart Rate 2023-06-04 10:01:00 78.00 /min Lizzie en F Gerardo BP Systolic 2022-10-01 10:14:00 122 mm[Hg] Step hen F Gerardo BP Diastolic 2022-10-01 10:14:00 61 mm[Hg] Robin phen F Gerardo Weight Measured 2022-10-01 10:14:00 214.00 pounds Vj F Gerardo Height Measured 2022-10-01 10:14:00 60.75 inches Vj F Gerardo Body Temperature 2022-10-01 10:14:00 97.60 degrees Vj F Gerardo Heart Rate 2022-10-01 10:14:00 66.00 /min Lizzie en F Gerardo Respiratory Rate 2022-10-01 10:14:00 Vj F Gerardo BP Systolic 2017-07-08 11:32:00 127 mm[Hg] Step hen F Gerardo BP Diastolic 2017-07-08 11:32:00 83 mm[Hg] Robin phen F Gerardo Weight Measured 2017-07-08 11:32:00 203.00 pounds Vj F Gerardo Height Measured 2017-07-08 11:32:00 60.75 inches Vj F Gerardo Body Temperature 2017-07-08 11:32:00 98.40 degrees Vj F Gerardo Heart Rate 2017-07-08 11:32:00 69.00 /min Lizzie en F Gerardo Respiratory Rate 2017-07-08 11:32:00 18.00 /min Vj F Gerardo BP Systolic 2017-04-14 09:43:00 132 mm[Hg] Step hen F Gerardo BP Diastolic 2017-04-14 09:43:00 85 mm[Hg] Robin phen F Gerardo Weight Measured 2017-04-14 09:43:00 205.40 pounds Vj F Gerardo Height Measured 2017-04-14 09:43:00 60.75 inches Vj F Gerardo Body Temperature 2017-04-14 09:43:00 98.30 degrees Vj F Gerardo Heart Rate 2017-04-14 09:43:00 71.00 /min Lizzie en F Geradro Respiratory Rate 2017-04-14 09:43:00 14.00 /min Vj F Gerardo BP Systolic 2014-05-29 15:14:00 117 mm[Hg] Step hen F Gerardo BP Diastolic 2014-05-29 15:14:00 81 mm[Hg] Robin phen F Gerardo Weight Measured 2014-05-29 15:14:00 205.60 pounds Vj F Gerardo Height Measured 2014-05-29 15:14:00 60.75 inches Vj F Greardo Body Temperature 2014-05-29 15:14:00 97.90 degrees Vj F Gerardo Heart Rate 2014-05-29 15:14:00 78.00 /min Lizzie en F Gerardo Respiratory Rate 2014-05-29 15:14:00 Vj F Gerardo BP Systolic 2014-04-20 10:26:00 121 mm[Hg] Step hen F Gerardo BP Diastolic 2014-04-20 10:26:00 83 mm[Hg] Robin phen F Gerardo Weight Measured 2014-04-20 10:26:00 209.00 pounds Vj F Gerardo Height Measured 2014-04-20 10:26:00 60.75 inches Vj F Gerardo Body Temperature 2014-04-20 10:26:00 Vj F Gerardo Heart Rate 2014-04-20 10:26:00 79.00 /min Lizzie en F Gerardo Respiratory Rate 2014-04-20 10:26:00 Vj F Gerardo BP Systolic 2014-04-20 10:15:00 121 mm[Hg] Step hen F Gerardo BP Diastolic 2014-04-20 10:15:00 83 mm[Hg] Robin phen F Gerardo Weight Measured 2014-04-20 10:15:00 209.00 pounds Vj Carrillo Height Measured 2014-04-20 10:15:00 60.75 inches Vj Carrillo Body Temperature 2014-04-20 10:15:00 Vj F Gerardo Heart Rate 2014-04-20 10:15:00 79.00 /min Lizzie en F Gerardo Respiratory Rate 2014-04-20 10:15:00 Vj Carrillo Procedures Procedure Date / Time Performed Performing Clinicia n Source Ecg Routine Ecg W/least 12 Lds W/i r 2014-04-20 00:00:00 Vj Carrillo Encounters Start Date/Time End Date/Time Encounter Type Admission Type Attending [facility] Care Department Encounter ID Source 2023-06-04 09:57:50 2023-06-04 09:57:[address] [facility] [id number] Vj Carrillo 2023-06-04 00:00:00 2023-06-04 00:00:[address] [facility] [id number] Vj Carrillo 2022-10-01 10:14:18 2022-10-01 10:14:18 Outpatient [facility] [id number] Vj Carrillo Results Test Description Test Time Test Comments Results Result Co mments Source [id number] 05:27:40* Test Item Value Reference Range Interpretation Comme nts LIPASE (test code = 2058) 27 U/L 13-60 HEMOGLOBIN [id number] 04:25:03* Test Item Value Reference Range Interpretation Comme nts HEMOGLOBIN A1c (test code = 38068) 5.9 % 4.2-5.6 H [employer] GUIDELINES FOR HGB A1C: [...] TESTING PERFORMED AT [facility] [address] [place] [address] [employer] VICE PRESIDENT: JOEL MELVIN M.D. CLIA NUMBER [id number] [facility]. [id number] CBC W/AUTO DIFF WITH [id number] 03:55:56* Test Item Value Reference Range Interpretation [...] 0.00-0.10 ABS NUCLEATED RBCS (test code = 57995) 0.00 K/UL 0.00-0.11 COMPREHENSIVE METABOLIC [id number] 03:34:56* Test Item Value Reference Range Interpretation Comme nts GLUCOSE (test code = 2217) 88 MG/DL 70-99 BUN (test code = 2208) 10 MG/DL 6-20 CREATININE (test code = 2214) 0.57 MG/DL 0.60-1.30 L eGFR (2020 CKD-EPI) (test code = 64672) 105 ML/MIN/1.73 >60 CALC BUN/CREAT (test code = 2235) 18 RATIO 6-28 SODIUM (test code = 2231) 142 MEQ/L 133-146 POTASSIUM (test code = 2228) 4.4 MEQ/L 3.5-5.4 CHLORIDE (test code = 2215) 104 MEQ/L 95-107 CARBON DIOXIDE (test code = 6) 27 MEQ/L 19-31 CALCIUM (test code = 2208) 9.7 MG/DL 8.5-10.5 PROTEIN, TOTAL (test code = 2228) 7.6 G/DL 6.1-8.3 ALBUMIN (test code = 1) 4.2 G/DL 3.5-5.2 CALC GLOBULIN (test code = 0) 3.4 G/DL 1.9-3.7 CALC A/G RATIO (test [...] code = 2218) 13 U/L 5-40 LIPID [id number] 03:34:56* Test Item Value Reference Range Interpretation Comme nts CHOLESTEROL (test code = 0) 268 MG/DL <200 H TRIGLYCERIDES (test code = 2) 235 MG/DL <150 H HDL CHOLESTEROL (test code = 2219) 49 MG/DL >39 CALC LDL CHOL (test code = 2236) 179 MG/DL <100 H NOTE: CALCULATED LDL IS BASED ON FRANK-HERMAN METHOD WHICHINCLUDES ADJUSTABLE TRIGLYCERIDE:VLDL CHOLESTEROL RATIO.THIS FACTOR VARIES BY MEASURED TRIGLYCERIDE AND NON-HDLCHOLESTEROL CONCENTRATIONS WITH INCREASED CALCULATED LDL SEENIN HIGHER TRIGLYCERIDE OR LOWER NON-HDL SPECIMENS. FOR MOREINFORMATION, SEE CLIENT ANNOUNCEMENT AT [email or web address] RISK RATIO LDL/HDL (test code = 2237) 3.65 RATIO <3.22 H [id number] 00:00:00* Test Item Value Reference Range Interpretation Comme nts AMYLASE (test code = 2204) 47 U/L Vj Loera [id number] 00:00:00* Test Item Value Reference Range Interpretation Comme nts LIPASE (test code = 2057) 27 U/L Vj F AustinCOMPREHENSIVE METABOLIC [id number] 00:00:00* Test Item Value Reference Range Interpretation Comme nts GLUCOSE (test code = 2217) 88 MG/DL BUN (test code = 2208) 10 MG/DL CREATININE (test code = 2214) 0.57 MG/DL eGFR (2020 CKD-EPI) (test code = 75360) 105 ML/MIN/1.73 CALC BUN/CREAT (test code = 2235) 18 RATIO SODIUM (test code = 2231) 142 MEQ/L POTASSIUM (test code = 2228) 4.4 MEQ/L CHLORIDE (test code = 2215) 104 MEQ/L CARBON DIOXIDE (test code = 2206) 27 MEQ/L CALCIUM (test code = 2209) 9.7 MG/DL PROTEIN, TOTAL (test code = 2229) 7.6 G/DL ALBUMIN (test code = 2201) 4.2 G/DL CALC GLOBULIN (test code = 2240) 3.4 G/DL CALC A/G RATIO (test code = 2234) 1.2 RATIO BILIRUBIN, TOTAL (test code = 2207) 0.3 MG/DL ALKALINE PHOSPHATASE (test code = 2204) 107 U/L AST (test code = 2218) 15 U/L ALT (test code = 2219) 13 U/L Vj Loera GerardoLIPID [id number] 00:00:00* Test Item Value Reference Range Interpretation Comme nts CHOLESTEROL (test code = 2210) 268 MG/DL TRIGLYCERIDES (test code = 2232) 235 MG/DL HDL CHOLESTEROL (test code = 2220) 49 MG/DL CALC LDL CHOL (test code = 2237) 179 MG/DL RISK RATIO LDL/HDL (test cod e = 2238) 3.65 RATIO Vj Loera GerardoCBC W/AUTO [id number] 00:00:00* Test Item Value Reference Range Interpretation Comme nts WBC (test code = 1001) 7.5 K/UL RBC (test code = 1002) 5.00 M/UL HEMOGLOBIN (test code = 1003) 12.4 G/DL HEMATOCRIT (test code = 1004) 40.7 % MCV (test code = 1005) 81.4 fL MCH (test code = 1006) 24.8 PG MCHC (test code = 1007) 30.5 G/DL RDW (test code = 1038) 15.5 % NEUTROPHILS (test code = 1008) 63.2 % LYMPHOCYTES (test code = 1010) 28.9 % MONOCYTES (test code = 1011) 5.0 % EOSINOPHILS (test code = 1012) 1.9 % BASOPHILS (test code = 1013) 0.7 % IMMATURE GRANULOCYTES (test code = 1036) 0.3 % NUCLEATED RBCS (test code = 1065) 0.0 /100WBC'S PLATELET COUNT (test code = 1015) 261 K/UL ABSOLUTE NEUTROPHILS (test c ode = 1066) 4.72 K/UL ABSOLUTE LYMPHOCYTES (test c ode = 1067) 2.15 K/UL ABSOLUTE MONOCYTES (test cod e = 1068) 0.37 K/UL ABSOLUTE EOSINOPHILS (test c ode = 1040) 0.14 K/UL ABSOLUTE BASOPHILS (test cod e = 1069) 0.05 K/UL ABS IMMATURE GRANULOCYTES (t est code = 1020) 0.02 K/UL ABS NUCLEATED RBCS (test cod e = 80749) 0.00 K/UL Vj CarrilloHEMOGLOBIN [id number] 00:00:00* Test Item Value Reference Range Interpretation Comme nts HEMOGLOBIN A1c (test code = 84870) 5.9 % Vj CarrilloHEMOGLOBIN [id number] 00:00:00* Test Item Value Reference Range Interpretation Comme nts HEMOGLOBIN A1c (test code = 04057) 5.8 % Vj Loera [id number] 00:00:00* Test Item Value Reference Range Interpretation Comme nts TSH, THIRD GENERATION (test code = 2821) 2.180 UIU/ML Vj CarrilloLIPID [id number] 00:00:00* Test Item Value Reference Range Interpretation Comme nts CHOLESTEROL (test code = 2210) 286 MG/DL TRIGLYCERIDES (test code = 2232) 192 MG/DL HDL CHOLESTEROL (test code = 2220) 61 MG/DL CALC LDL CHOL (test code = 2237) 187 MG/DL RISK RATIO LDL/HDL (test cod e = 2238) 3.06 RATIO Vj CarrilloCBC W/AUTO [id number] 00:00:00* Test Item Value Reference Range Interpretation Comme nts WBC (test code = 1001) 9.5 K/UL RBC (test code = 1002) 4.90 M/UL HEMOGLOBIN (test code = 1003) 13.4 G/DL HEMATOCRIT (test code = 1004) 39.5 % MCV (test code = 1005) 80.6 fL MCH (test code = 1006) 27.3 PG MCHC (test code = 1007) 33.9 G/DL RDW (test code = 1038) 14.4 % NEUTROPHILS (test code = 1008) 68.5 % LYMPHOCYTES (test code = 1010) 23.6 % MONOCYTES (test code = 1011) 4.9 % EOSINOPHILS (test code = 1012) 2.4 % BASOPHILS (test code = 1013) 0.6 % PLATELET COUNT (test code = 1015) 329 K/UL Vj CarrilloCOMPREHENSIVE METABOLIC [id number] 00:00:00* Test Item Value Reference Range Interpretation Comme nts GLUCOSE (test code = 2217) 97 MG/DL BUN (test code = 2208) 11 MG/DL CREATININE (test code = 2214) 0.46 MG/DL eGFR AMER. (test cod e = 00884) 131 ML/MIN/1.73 eGFR NON- AMER. (test code = 71818) 113 ML/MIN/1.73 CALC BUN/CREAT (test code = 2235) 24 RATIO SODIUM (test code = 2231) 139 MEQ/L POTASSIUM (test code = 2228) 4.7 MEQ/L CHLORIDE (test code = 2215) 99 MEQ/L CARBON DIOXIDE (test code = 2206) 26 MEQ/L CALCIUM (test code = 2209) 9.6 MG/DL PROTEIN, TOTAL (test code = 2229) 8.1 G/DL ALBUMIN (test code = 2201) 4.3 G/DL CALC GLOBULIN (test code = 2240) 3.8 G/DL CALC A/G RATIO (test code = 2234) 1.1 RATIO BILIRUBIN, TOTAL (test code = 2207) 0.2 MG/DL ALKALINE PHOSPHATASE (test code = 2204) 113 U/L AST (test code = 2218) 17 U/L ALT (test code = 2219) 18 U/L Vj Carrillo
[2024-01-18] MEDS ORDERED: HYDROCODONE/APAP 10/325 TAB ONE (11:09)
--- NOTE | 2024-01-18 12:10 | RAD REPORT ---
EXAMINATION: XR Foot Right 2 View CLINICAL INDICATION: Female, 63 years old. [facility] MAIN PAIN Bed Name: 12 TECHNIQUE: 2 view radiographs of the right foot were obtained. COMPARISON: No prior exam. FINDINGS: No evidence of fracture or dislocation. Normal alignment although somewhat rotated lateral projection positioning and superimposition of extracorporeal tissues along the left heel limits evaluation. No evidence of arthropathy or other focal bone lesion. Soft tissues are unremarkable. No soft tissue swelling. Mild degenerative changes of the midfoot. IMPRESSION: No acute or significant abnormalities. Findings as above.
--- NOTE | 2024-01-18 12:12 | RAD REPORT ---
EXAM: XR Knee Right 3 View HISTORY: HS MAIN fall;Pain Bed Name: 12 COMPARISON: None TECHNIQUE: 3 views of the left knee were obtained. FINDINGS: No knee effusion is seen. Mildly displaced and comminuted fracture of the patella, some of its components appear corticated, may indicate acute on top of chronic fractures. Deformity of the distal femoral metaphysis compatible with prior fracture healing. At least moderate tricompartmental osteoarthritic changes with narrowing of the weightbearing compartments No soft tissue swelling or other soft tissue abnormality is present. IMPRESSION: Probable acute on top of chronic fractures of the patella. Please correlate with physical exam findin gs. Deformity of the distal femur suggesting a healed remote fracture. Please moderate tricompartmental o steoarthritic knee joint changes.
--- NOTE | 2024-01-18 13:53 | RAD REPORT ---
EXAM: CT Knee Right Wo Cont HISTORY: fall COMPARISON: None TECHNIQUE: Multiple contiguous axial images were obtained for a CT of the right knee without contrast . Sagittal and coronal reformats were performed. One or more of the following dose reduction techniques were used: Automated exposure control, adjus tment of the mA and kV according to patient size, and iterative reconstruction. Unless otherwise specified, incidental findings do not require dedicated imaging follow-up. FINDINGS: Acute appearing predominantly transversely oriented fracture of the patella, with fracture gap measur ing 1-1.5 cm in average, with some caudal displacement of the inferior fragment and mildly buckled appearance of the patellar tendon. Cortical irregularities along the superior margin of the patella, could relate to enthesopathy, sequelae of remote fracture, although some articular surface discontinuity posteriorly could relate to a component of acute fracture/avulsion. Moderate knee joint effusion and periarticular soft tissue swelling. Soft tissue swelling anterior to the patella as well extending into the subcutaneous soft tissue, cou ld relate to a small hematoma. Deformity of the distal femoral metaphysis with heterogeneous areas of sclerosis and lucency, and seq uelae of prior hardware fixation tracts, suggesting a healed fracture. Tricompartmental osteoarthritic changes with moderate narrowing of the medial and lateral weightbeari ng compartments, marginal spurring, and subchondral irregularity and sclerotic changes. Vascular calcifications. IMPRESSION: Acute appearing dominant transversely oriented fracture along the mid aspect of the patella. Cortical irregularities along the superior patellar margin could relate to chronic findings and/or a component of acute fracture/avulsion. Moderate knee joint effusion and periarticular soft tissue swelling. Suggestion of small hematoma ant eriorly within the subcutaneous soft tissues along the lower aspect of the patella. Tricompartmental osteoarthritic changes as above. Deformity along the distal femur metaphysis likely relates to sequelae of remote healed fracture/ fusion.
[2024-01-18] MEDS ORDERED: MORPHINE 4 MG/ML SYR ONE (13:57)
--- NOTE | 2024-01-18 14:13 | ER ---
Nurse's Notes [facility] Name: Kallie Durham Age: 63 yrs Sex: Female : 1960 Arrival Date: 01/18/2024 Time: 10:46 Bed 12 Private MD: Diagnosis: Pain in right foot;Displaced comminuted fracture of right patella-right Presentation: 01/17 11:07 Chief complaint: Patient states: R knee pain after falling from standing just prior to ss arrival. Coronavirus screen: Client denies travel out of the [place] in the last 14 days. Ebola Screen: Patient denies exposure to infectious person. Patient denies travel to an Ebola-affected area in the 21 days before illness onset. Initial Sepsis Screen: Does the patient meet any 2 criteria? No. Patient's initial sepsis screen is negative. Does the patient have a suspected source of infection? No. Patient's initial sepsis screen is negative. Risk Assessment: Do you want to hurt yourself or someone else? Patient reports no desire to harm self or others. Onset of symptoms was January 18, 2024. 11:07 Method Of Arrival: Ambulatory ss 11:07 Acuity: ZARA 3 ss Historical: - Allergies: 11:09 No Known Allergies; ss - Home Meds: 11:09 None [Active]; ss - PMHx: 11:09 None; ss - Immunization history:: Client reports receiving the 2nd dose of the Covid vaccine. - Infectious Disease History:: Denies. - Social history:: Smoking status: Patient denies any tobacco usage or history of. Screenin/10 11:07 Abuse screen: Denies threats or abuse. Denies injuries from another. Nutritional ss screening: No deficits noted. Tuberculosis screening: Never had TB. Assessment: 01/17 11:07 General: Appears distressed, uncomfortable, Behavior is anxious, crying. Pain: ss Complains of pain in R knee Pain currently is 10 out of 10 on a pain scale. Quality of pain is described as aching, tender, Is continuous. Neuro: Level of Consciousness is awake, alert, obeys commands, Oriented to person, place, time, situation, Nursing Assistants Teacher are equal bilaterally Moves all extremities. Full function Gait is steady. Cardiovascular: Pulses are palpable in right posterior tibial artery and left posterior tibial artery. Respiratory: Airway is patent Respiratory effort is even, unlabored, Respiratory pattern is regular, symmetrical. Derm: Skin is intact, is healthy with good turgor, Skin is pink, warm \T\ dry. normal, Bruising that is on right knee. 12:47 Reassessment: Pt to CT now VIA stretcher. hb 14:30 Reassessment: Called materials management to see if there were walkers stocked, but ss there were none. Prescription for walker written by MELITON De La O and given to pt and family upon discharge. Vital Signs: 11:07 BP 132 / 82; Pulse 111; Resp 20; Temp 98.6(TE); Pulse Ox 96% ; Weight 90.72 kg; Height ss 5 ft. 0 in. ; Pain 10; 11:07 Body Mass Index 39.06 (90.72 kg, 152.4 cm) ss 11:07 Pain Scale: Adult ss ED Course: 10:48 Patient arrived in ED. im 10:50 Maximus Rascon PA is PHCP. cp 10:50 Wilder eFliciano MD is Attending Physician. cp 11:09 Triage completed. ss 11:09 Arm band placed on right wrist. ss 11:11 Tammy Espana, RN is Primary Nurse. ss 11:53 XRAY Knee RIGHT 3 view In Process Unspecified. EDMS 11:53 Foot Right 2 View In Process Unspecified. EDMS 12:52 Knee Right Wo Cont In Process Unspecified. EDMS 14:12 Vipin Alva MD is Referral Physician. cp 14:52 No provider procedures requiring assistance completed. Patient did not have IV access ll1 during this emergency room visit. Knee immobilizer applied on right knee. 01/18 11:07 Patient has correct armband on for positive identification. ss Administered Medications: 01/17 11:15 Drug: HYDROcodone-acetaminophen PO 10 mg-325 mg 1 tabs PO once Route: PO; ss 14:50 Follow up: Response: No adverse reaction ll1 14:20 Drug: morphine IM 4 mg IM once Route: IM; Site: right deltoid; ll1 14:51 Follow up: Response: No adverse reaction; Medication Administered at Departure; RASS: ll1 Alert and Calm (0) Medication: 01/18 11:07 VIS not applicable for this client. ss Outcome: 01/17 14:13 Discharge ordered by . cp 14:53 Discharged to home via wheelchair, with family, ll1 14:53 Condition: good 14:53 Discharge instructions given to patient, family, Instructed on discharge instructions, follow up and referral plans. medication usage, Demonstrated understanding of instructions, follow-up care, medications, Prescriptions given X 2, 14:53 Patient left the ED. ll1 Signatures: Dispatcher [employer] EDMS Tammy Espana RN RN Maximus Rascon PA PA cp Baxter, Heather, RN RN Herb Mejía RN RN ll1 Beckie Aquino Corrections: (The following items were deleted from the chart) 01/18 11: 11:07 General: Appears distressed, uncomfortable, Behavior is anxious, crying, ss : 11:07 Pain: Complains of pain in R knee Pain currently is 10 out of 10 on a pain scale. ss Quality of pain is described as aching, tender, Is continuous, : 11:07 Neuro: Level of Consciousness is awake, alert, obeys commands, Oriented to ss person, place, time, situation, Nursing Assistants Teacher are equal bilaterally Moves all extremities. Full function Gait is steady, : 11:07 Respiratory: Airway is patent Respiratory effort is even, unlabored, Respiratory ss pattern is regular, symmetrical, : 11:07 Derm: Skin is intact, is healthy with good turgor, Skin is pink, warm \T\ dry. ss normal, Bruising that is on right knee ss : 11:07 Cardiovascular: Pulses are palpable in right posterior tibial artery and left ss posterior tibial artery ss
--- NOTE | 2024-01-18 14:14 | EDPHYS ---
Physician Documentation [facility] Name: Kallie Durham Age: 63 yrs Sex: Female : 1960 Arrival Date: 01/18/2024 Time: 10:46 Bed 12 Private MD: ED Physician Wilder Feliciano HPI: 01/17 11:03 This 63 yrs old Female presents to ER via Unassigned with complaints of Fall cp Injury. 11:03 Details of fall: The patient fell from an upright position, while walking. cp 11:03 Onset: The symptoms/episode began/occurred just prior to arrival. Associated injuries: cp The patient sustained right foot and right knee, ecchymosis, painful injury. Severity of symptoms: in the emergency department the symptoms are actually worse, markedly. Historical: - Allergies: 11:09 No Known Allergies; ss - Home Meds: 11: None [Active]; ss - PMHx: 11: None; ss - Immunization history:: Client reports receiving the 2nd dose of the Covid vaccine. - Infectious Disease History:: Denies. - Social history:: Smoking status: Patient denies any tobacco usage or history of. ROS: 11:05 MS/extremity: Positive for injury or acute deformity, decreased range of motion, cp ecchymosis, pain, swelling, tenderness, of the right knee, 11:05 Eyes: Negative for injury, pain, redness, and discharge, cp 11:05 Constitutional: Negative for body aches, chills, fever, 11:05 Neck: Negative for pain with movement, pain at rest, 11:05 Cardiovascular: Negative for chest pain, 11:05 Abdomen/GI: Negative for abdominal pain, 11:05 Back: Negative for pain at rest, pain with movement, 11:05 Neuro: Negative for altered mental status, dizziness, headache, loss of consciousness, syncope, near syncope, weakness, 11:05 All other systems are negative, Exam: 11:10 Head/Face: Normocephalic, atraumatic. cp 11:10 Constitutional: The patient appears alert, awake, non-toxic, well developed, well nourished, obese, in obvious pain, uncomfortable, 11:10 Neck: ROM/movement: is normal, is supple, without pain, no range of motions limitations, 11:10 Chest/axilla: Inspection: normal, Palpation: is normal, no crepitus, no tenderness, 11:10 Cardiovascular: Rate: tachycardic, Rhythm: regular, 11:10 Respiratory: the patient does not display signs of respiratory distress, Respirations: normal, no use of accessory muscles, no retractions, labored breathing, is not present, Breath sounds: are clear throughout, no decreased breath sounds, no stridor, no wheezing, 11:10 Abdomen/GI: Exam negative for discomfort, distension, guarding, Inspection: abdomen appears normal, 11:10 Back: pain, is absent, ROM is normal, 11:10 Musculoskeletal/extremity: Extremities: noted in the right knee: decreased ROM, deformity, ecchymosis, pain, swelling, tenderness, noted in the right foot: pain, tenderness, 11:10 Neuro: Orientation: to person, place \T\ time. Mentation: is normal, Vital Signs: 11:07 BP 132 / 82; Pulse 111; Resp 20; Temp 98.6(TE); Pulse Ox 96% ; Weight 90.72 kg; Height ss 5 ft. 0 in. ; Pain 10; 11:07 Body Mass Index 39.06 (90.72 kg, 152.4 cm) ss 11:07 Pain Scale: Adult ss Procedures: 14:30 Splinting: Splint applied to right knee using knee immobilizer, applied by nurse. cp Examined by me, post splint application: neurovascular intact, Patient tolerated well. MDM: 10:50 Medical Screening Exam initiated cp 12:00 Differential diagnosis: contusion, fracture, sprain, strain, dislocation. cp 14:12 Data reviewed: vital signs, nurses notes, radiologic studies, plain films, and as a cp result, I will discharge patient. 14:12 I considered the following discharge prescriptions or medication management in the emergency department Medications were administered in the Emergency Department. See MAR. Counseling: I had a detailed discussion with the patient and/or guardian regarding the historical points, exam findings, and any diagnostic results supporting the discharge/admit diagnosis, radiology results, the need for outpatient follow up, for definitive care, a orthopedic surgeon, to return to the emergency department if symptoms worsen or persist or if there are any questions or concerns that arise at home. Response to treatment: the patient's symptoms have markedly improved after treatment, and as a result, I will discharge patient. 1209 11:04 Order name: XRAY Knee RIGHT 3 view; Complete Time: 13:56 cp 01/17 11:53 Order name: Foot Right 2 View; Complete Time: 13:56 EDMS 01/17 12:18 Order name: Knee Right Wo Cont; Complete Time: 13:56 EDMS 01/17 12:01 Order name: Knee Immobilizer; Complete Time: 12:47 cp Administered Medications: 11:15 Drug: HYDROcodone-acetaminophen PO 10 mg-325 mg 1 tabs PO once Route: PO; ss 14:50 Follow up: Response: No adverse reaction ll1 14:20 Drug: morphine IM 4 mg IM once Route: IM; Site: right deltoid; ll1 14:51 Follow up: Response: No adverse reaction; Medication Administered at Departure; RASS: ll1 Alert and Calm (0) Disposition: 19:22 Co-signature as Attending Physician, Wilder Feliciano MD I reviewed the patient's care rn provided by the Advanced Practice Provider and agree with the diagnosis and treatment plan. Disposition Summary: 01/18/24 14:13 Discharge Ordered Notes: Location: Home cp Problem: new cp Symptoms: have improved cp Condition: Stable cp Diagnosis - Pain in right foot cp - Displaced comminuted fracture of right patella - right cp Followup: cp - With: Vipin Alva MD - When: 2 - 3 days - Reason: right patella fracture Discharge Instructions: - Discharge Summary Sheet cp - Patellar Fracture, Adult cp - Foot Pain cp Forms: - Medication Reconciliation Form cp - Antibiotic Education cp - Prescription Opioid Use cp - Patient Portal Instructions cp - Leadership Thank You Letter cp Prescriptions: - acetaminophen-codeine 300-30 mg Oral tablet - take 2 tablet ORAL route every 8 to 12 hours; 16 tablet; Refills: 0, Product cp Selection Permitted - Anaprox DS 550 mg Oral Tablet - take 1 tablet ORAL route every 12 hours As needed; 20 tablet; Refills: 0, cp Product Selection Permitted Signatures: Dispatcher [employer] EDWilder Meadows MD MD rn Blanchard, Shelby, RN RN Maximus Payton PA PA cp Herb Mejía RN RN ll1 Corrections: (The following items were deleted from the chart) 11:53 11:05 Foot Right 3 View+[email or web address] ordered. EDCA EDMS 12:18 12:12 CT RIGHT KNEE WO CONTRAST ordered. EDMS EDMS 01/18 12:33 01/17 11:10 Musculoskeletal/extremity: Extremities: noted in the right knee: decreased cp ROM, deformity, ecchymosis, pain, swelling, tenderness, noted in the right foot: pain, tenderness, cp
[2024-01-18 18:07] VITALS: BP 132/82; TEMP 98.6; O2SAT 96
== END 2024-01-18 14:53 | disposition home or self-care (01) ==
LOC: ER 10:46
DX: S82.041A Displaced comminuted fracture of right patella, initial encounter for closed fracture (principal)
CPT/HCPCS: 73700; 96372; 99284